=== PATIENT | male | born 2005 | race Caucasian/White ===

== ENCOUNTER 2023-11-11 21:04 | Emergency (ER) | payer BC, SELFPAY ==
--- NOTE | ~2023-11-11 | CT_ITS ---
EXAMINATION: CT soft tissue neck w con DATE: 11/11/2023 23:33 INDICATION: Tonsillar swelling TECHNIQUE: Computed tomography (CT) of the neck was performed with 75 mL Omnipaque-350 intravenous co ntrast. The dose-length product was 491.99 mGy-cm. Automated exposure control and iterative reconstru ction technique were employed. COMPARISON: None FINDINGS: No intracranial abnormality identified. Mucosal and parapharyngeal spaces are symmetric. There is palatine and and lingual tonsils are enlarg ed, consistent with tonsillitis. Study limited by motion artifact. There is narrowing of the hypophar ynx. No peritonsillar abscess identified. There is mild cervical lymphadenopathy, likely reactive. Th ere is mucosal thickening of the paranasal sinuses. Mastoids are pneumatized. There is right maxillar y mucous retention cyst. IMPRESSION: 1. Enlarged palatine and lingual tonsils, consistent with tonsillitis, without evidence for abscess. 2: Cervical lymphadenopathy, likely reactive. 3: Moderate sinusitis. Reviewed, dictated and finalized at location A.
[2023-11-11 21:07] VITALS: BP 122/47; PULSE 139; RESP 20; TEMP 36.9; O2SAT 95
--- NOTE | 2023-11-11 21:18 | ED.FEVER ---
HPI - Fever General Chief Complaint: Fever Stated Complaint: fever/swollen tonsils Time Seen by Provider: 11/11/23 21:10 Focused HPI: This is a 18 year old male that presents to the ER for sore throat. Reports he was started on Amoxicillin for strep throat. He has been on this for 5 days without relief. Reports continued fevers and pain. GENERAL: Well-appearing, well-nourished, and in no acute distress. HEAD: Normocephalic, atraumatic. ENT: Tonsillar hypertrophy and exudate, left tonsil in larger than right. No trismus CHEST: Clear to auscultation. ?No respiratory distress. HEART: Regular rate and rhythm.? NEURO: ?Alert and oriented x3. Patient screened in triage and initial orders placed.? ?Additional care and disposition to be based upon?diagnostic testing and treatment. Source: patient Mode of arrival: ambulatory Limitations: no limitations Related Data Allergies Allergy/AdvReac Type Severity Reaction Status Date / Time No Known Allergies Allergy Verified 11/11/23 21:05 Review of Systems Review of Systems: CONSTITUTIONAL: Reports fever ENT: Reports sore throat RESPIRATORY: Denies dyspnea. GASTROINTESTINAL: Denies vomiting All systems reviewed & are unremarkable except as noted in HPI and below PMFSH Past Medical History Medical History (Updated 11/12/23 @ 01:58 by Sia Lopez PA-C) No active medical problems Social History Social History (Updated 11/12/23 @ 01:24 by Sia Lopez PA-C) Smoking status: Never smoker Exam Narrative: GENERAL: Well-appearing, well-nourished, and in no acute distress. HEAD: Normocephalic, atraumatic. EYES: EOMI. ENT: Nares clear, no rhinorrhea or epistaxis. Mucous membranes moist. Oropharynx with tonsillar hypertrophy and exudate. L>R No trismus NECK: Supple. Tender anterior cervical adenopathy CHEST: Clear to auscultation. No respiratory distress. No wheezes rales or rhonchi HEART: Regular rate and rhythm. No murmur heard. Normal peripheral pulses. EXTREMITIES: Normal range of motion. No edema. SKIN: Warm, dry, no rash. NEURO: No focal deficits. Alert and oriented x3. PSYCH: Normal mood and affect Course Vital Signs Vital signs: Vital Signs Temperature 98.5 F 11/11/23 21:07 Pulse Rate 139 H 11/11/23 21:07 Respiratory Rate 20 11/11/23 21:07 Blood Pressure 122/47 L 11/11/23 21:07 Pulse Oximetry 95 11/11/23 21:07 Oxygen Delivery Room Air 11/11/23 21:07 Temperature 99.1 F 11/11/23 23:47 Pulse Rate 105 H 11/11/23 23:41 Respiratory Rate 16 11/11/23 23:41 Blood Pressure 109/56 L 11/11/23 23:41 Pulse Oximetry 97 11/11/23 23:41 Oxygen Delivery Room Air 11/11/23 21:07 MDM - Fever MDM Narrative Medical decision making narrative: Patient presents to the emergency department for sore throat ongoing over the last 5 days. Has been treated with amoxicillin for strep without relief. Tachycardic upon arrival, this normalized with IV fluids. Patient is nontoxic appearing. No trismus. Airway is patent. His left tonsil was slightly more enlarged than the right. CBC with leukocytosis to 20.3. Also shows normocytic anemia with hemoglobin of 13.7. Metabolic panel with some evidence of dehydration. [place] screen was positive. CT soft tissue neck obtained to rule out peritonsillar abscess. No evidence of abscess noted. Patient tolerating oral intake. Given a dose of Unasyn and Decadron in the ED. Will be given follow-up with ENT. Will change patient's antibiotic to a cephalosporin. Patient and family were updated on his workup and agree with plan of care. He was given warnings to return to the ER Differential Diagnosis Differential diagnosis: Likely viral infection and other (mono, strep, RN HYPERBARIC) Lab Data Attestation: I reviewed the patient's lab results. 11/11/23 21:20 11/11/23 22:29 Labs: Lab Results 11/11/23 11/11/23 Range/Units 21:20 22:29 WBC 20.3 H (4.5-10.0) K/mm3 RBC 4.7
[2023-11-11 21:30] LABS: Hematocrit 40.8 % (42.0-52.0); Hemoglobin 13.7 g/dL (14.0-18.0); Mean Corpuscular HGB Conc 33.6 g/dl (32-36); Mean Corpuscular Hemoglobin 28.8 pg (26-34); Mean Corpuscular Volume 85.9 fl (80-100); Mean Platelet Volume 10.5 fl (7.4-10.4); Platelet Count Result 204 k/mm3 (150-375); Red Blood Count 4.75 M/mm3 (4.6-6.20); Red Cell Distribution Width 12.6 % (11.5-14.5); White Blood Count 20.3 K/mm3 (4.5-10.0)
[2023-11-11 21:56] LABS: Band Neutrophils Percent 2 % (0-6); Basophils Percent Manual 2 % (0-1); Lymphocytes Absolute Manual 10.75 K/mm3 (1.1-4.5); Metamyelocytes Percent 1 %; Monocytes Percent Manual 3 % (3-9); Myelocytes Percent 7 %; Neutrophils Percent Manual 32 % (46-73); Total Cells Counted 100
[2023-11-11 21:57] LABS: Anisocytosis 1+; Platelet Estimate Adequate (Adequate); Smudge Cells MODERATE
[2023-11-11 21:58] LABS: Atypical Lymphocytes Present; Schistocytes None Seen
[2023-11-11 22:48] VITALS: BP 128/78; PULSE 117; RESP 16; TEMP 38.8; O2SAT 97
[2023-11-11 22:50] VITALS: TEMP 38.8
[2023-11-11] MEDS: SODIUM CHLORIDE 0.9% IV 1,000 ML 999 ML IV CONT (22:50)
[2023-11-11] MEDS: IBUPROFEN IV 800 MG/200 ML 800 MG/200 ML BAG 400 MG IVPB (22:50)
[2023-11-11 22:55] LABS: Anion Gap 7 mmol/L (8-16); Blood Urea Nitrogen 11 mg/dL (9-20); Calcium 8.8 mg/dL (8.4-10.2); Carbon Dioxide 28 mmol/L (22-30); Chloride 95 mmol/L (98-107); Estimated CRCL calculation 111 ml/min; Estimated Glomerular Filt Rate > 60; Glucose 120 mg/dL (65-110); Potassium 4.3 mmol/L (3.4-5.0); Sodium 130 mmol/L (137-145)
[2023-11-11 23:26] LABS: Monoscreen Positive (Negative); Negative Monotest Control Negative (Negative); Positive Monotest Control Positive (Positive)
[2023-11-11 23:41] VITALS: BP 109/56; PULSE 105; RESP 16; O2SAT 97
[2023-11-11 23:47] VITALS: TEMP 37.3
[2023-11-12] MEDS: AMPICILLIN SULB 3 GM/NS 100 ML 3 GM/100 ML VIAL IVPB (01:36)
[2023-11-12] MEDS: dexAMETHasone SOD PHOS INJ 10 MG/ML 1 ML VIAL IV PUSH (01:36)
[2023-11-12 02:15] VITALS: BP 123/76; PULSE 98; RESP 15; TEMP 36.9; O2SAT 99
== END 2023-11-12 02:16 | disposition home or self-care (01) ==
PROVIDERS: Emergency Provider Physician Assistant
DX: J02.0 Streptococcal pharyngitis (principal); B27.90 Infectious mononucleosis, unspecified without complication
CPT/HCPCS: 36415; 70491; 80048; 85025; 86308; 96365; 96367; 96375; 99284; J0295; J1100; J1741; J7030; Q9967